=== PATIENT | male | born 1975 | race American Indian/Alaskan Native ===

== ENCOUNTER 2019-07-22 13:35 | Emergency (ER) | payer SELFPAY ==
[2019-07-22 14:11] VITALS: BP 191/138
--- NOTE | 2019-07-22 14:15 | Emergency Department Report ---
ED Upper Extremity Inj HPI - General Chief Complaint: Extremity Injury, Upper Stated Complaint: RT WRIST PAIN Time Seen by Provider: 07/22/19 14:07 Source: patient Mode of arrival: Ambulatory Limitations: No Limitations - History of Present Illness Initial Comments: This is a 43-year-old male nontoxic, well nourished in appearance, no acute signs of distress presents to the ED with c/o of chronic right wrist pain x3 months. Patient stated had been seeing a chriaprator and had xrays that was within normal limits and was given followup with orthopedic for possible MRI but never followed up with orthopedic. Patient denies any new trauma or injuries. Denies decreased ROM, joint swelling, redness, or abnormal gait. Denies any fever, chills, nausea, vomiting, headache, stiff neck, chest pain or shortness of breath. Patient denies any numbness or tingling. Denies any allergies. PMH includes HTN which stated he does take medications for. MD Complaint: Injury to:: right, wrist -: month(s) Other Extremity Injury: Wrist: Right Severity scale (0 -10): 3 Improves With: immobilization Worsens With: movement of extremity Associated Symptoms: denies other symptoms. denies: weakness, numbness, neck pain, suspects foreign body, nausea/vomiting, heard/felt popping sensat - Related Data Allergies Allergy/AdvReac Type Severity Reaction Status Date / Time No Known Allergies Allergy Unverified 07/22/19 13:38 ED Review of Systems ROS: Stated complaint: RT WRIST PAIN Other details as noted in HPI Constitutional: denies: chills, fever Eyes: denies: eye pain, eye discharge, vision change ENT: denies: ear pain, throat pain Respiratory: denies: cough, shortness of breath, wheezing Cardiovascular: denies: chest pain, palpitations Endocrine: no symptoms reported Gastrointestinal: denies: abdominal pain, nausea, diarrhea Genitourinary: denies: urgency, dysuria Musculoskeletal: denies: back pain, joint swelling, arthralgia Skin: denies: rash, lesions Neurological: denies: headache, weakness, paresthesias Psychiatric: denies: anxiety, depression Hematological/Lymphatic: denies: easy bleeding, easy bruising ED Past Medical Hx - Past Medical History Previous Medical History?: Yes Hx Hypertension: Yes - Surgical History Past Surgical History?: No - Social History Smoking Status: Never Smoker Substance Use Type: None ED Physical Exam - General Limitations: No Limitations General appearance: alert, in no apparent distress - Head Head exam: Present: atraumatic, normocephalic - Extremities Exam Extremities exam: Present: normal inspection, full ROM, tenderness, normal capillary refill. Absent: joint swelling - Expanded Upper Extremity Exam Right General: Present: normal inspection Shoulder Exam: Present: normal inspection, full ROM. Absent: tenderness, swelling Upper Arm exam: Present: normal inspection, full ROM. Absent: tenderness, swelling Elbow exam: Present: normal inspection, full ROM. Absent: tenderness, swelling Forearm Wrist exam: Present: normal inspection, full ROM, tenderness. Absent: swelling, abrasion, laceration, ecchymosis, deformity, crepidus, dislocation, erythema, tenderness over anatomical snuff box, pain with axial thumb loading Hand Wrist exam: Present: normal inspection, full ROM. Absent: tenderness, swelling Vascular: Present: vascular compromise, normal capillary refill - Back Exam Back exam: Present: normal inspection, full ROM. Absent: tenderness - Neurological Exam Neurological exam: Present: alert, oriented X3, normal gait - Psychiatric Psychiatric exam: Present: normal affect, normal mood - Skin Skin exam: Present: warm, dry, intact, normal color. Absent: rash ED Course Vital Signs 07/22/19 14:07 Temperature 98.1 F Pulse Rate 70 Respiratory 18 Rate Blood Pressure 202/139 O2 Sat by Pulse 99 Oximetry - Reevaluation(s) Reevaluation #2: 07/22/19 14:11 Patient is speaking in full sentences with no signs of distress noted. ED Medical Decision Making - Medical Decision Making This is a 43-year-old male that presents with chronic wrist pain. Patient is stable and was examined by me. Patient has a wrist immobilize on right now. Exam does not show any acute conditions. No joint effusion, no redness, no decreased ROM. Normal gait. According to ACEP guidelines in ED patients with asymptomatic markedly elevated blood pressure, routine screening for acute target organ injury (eg, serum creatinine, urinalysis, ECG) is not required; In patients with asymptomatic markedly elevated blood pressure, routine ED medical intervention is not required. Patient was instructed to Follow-up with a orthopedic doctor in 3-5 days or if symptoms worsen and continue return to emergency room as soon as possible. At time of discharge, the patient does not seem toxic or ill in appearance. No acute signs of distress noted. Patient agrees to discharge treatment plan of care. No further questions noted by the patient. Critical care attestation.: If time is entered above; I have spent that time in minutes in the direct care of this critically ill patient, excluding procedure time. ED Disposition Clinical Impression: Chronic wrist pain Qualifiers: Laterality: right Qualified Code(s): M25.531 - Pain in right wrist; G89.29 - Other chronic pain Disposition: MED SCREENING EXAM-LEFT Is pt being admited?: No Does the pt Need Aspirin: No Condition: Stable Instructions: Wrist Injury (ED) Additional Instructions: Follow-up with a orthopedic doctor in 3-5 days or if symptoms worsen and continue return to emergency room as soon as possible. Referrals: PRIMARY CARE, [Referring] - 3-5 Days JONATOHN FONTENOT MD [Staff Physician] - 3-5 Days NADEEN WASHINGTON MD [Staff Physician] - 3-5 Days [facility] [Outside] - 3-5 Days
== END 2019-07-22 14:30 | disposition left against medical advice (07) ==
LOC: ED 13:35
DX: G89.29 Other chronic pain (principal); M25.531 Pain in right wrist; I10 Essential (primary) hypertension